=== PATIENT | male | born 1990 | race African-American/Black ===

== ENCOUNTER 2017-08-06 16:06 | Emergency (ER) | payer MEDICAID ==
[~2017-08-06] VITALS: Ht 172.7 cm; Wt 105.0 kg
[~2017-08-06 16:06] MED LIST: CHLO100T24 PO; CLON1 PO; ESCI10TA PO; HALO5 PO
[2017-08-06 16:28] LABS: GLUCOSE,POINT OF CARE 77 MG/DL (70-110)
[2017-08-06 17:10] VITALS: BP 147/81
[2017-08-06] MEDS ORDERED: DEXAMETHASONE SOD PHOS 4 MG/ML 5 ML VIAL IM ONE (17:15)
== END 2017-08-06 17:20 | disposition left against medical advice (07) ==
LOC: EMS 16:07
DX: T78.40XA Allergy, unspecified, initial encounter (principal); J02.9 Acute pharyngitis, unspecified; I10 Essential (primary) hypertension; F17.210 Nicotine dependence, cigarettes, uncomplicated; Z88.6 Allergy status to analgesic agent; Z88.8 Allergy status to other drugs, medicaments and biological substances
CPT/HCPCS: 82962; 96372; 99283; J1100